=== PATIENT | female | born 1990 | race Caucasian/White ===

== ENCOUNTER 2020-02-12 05:22 | Inpatient (IN) | payer MEDICAID ==
[~2020-02-12] VITALS: Ht 167.6 cm; Wt 95.0 kg
[2020-02-12] MEDS ORDERED: IBUPROFEN 600 MG TABLET PO ONE (05:30)
--- NOTE | 2020-02-12 05:34 | NUR ---
Patient BIB fixed wing from [place] c/o left ankle pain and fevers. Patient is one month post reduction of the left ankle. Today there is pain at the surgical site along with drainage and patient is experiencing fevers and body aches. Patient appears anxious. Respirations even and unlabored.
[2020-02-12] MEDS ORDERED: IBUPROFEN 600 MG TABLET ONE (05:39)
[2020-02-12] MEDS ORDERED: NICOTINE 14MG/24 HR PATCH.TD24 ONE (05:39)
[2020-02-12] MEDS ORDERED: LORazepam 2 MG/ML, 1ML ONE (05:49)
[2020-02-12] MEDS ORDERED: SODIUM CHLORIDE FLUSH 10ML SYR IVF ONE (06:00)
[2020-02-12] MEDS ORDERED: NICOTINE 14MG/24 HR PATCH.TD24 TD ONE (06:00)
[2020-02-12] MEDS ORDERED: LORazepam 1MG TABLET PO ONE (06:00)
[2020-02-12] MEDS ORDERED: PLEASE ENTER ALLERGIES MC SCH (06:00)
[2020-02-12] MEDS ORDERED: SODIUM CHLORIDE 0.9% 1,000ML IVBOLUS ONE (06:00)
--- NOTE | 2020-02-12 06:13 | NUR ---
Task RN: pt stating she wants to leave AMA. pt medicated for anxiety per emar. I discussed with pt in depth the risks of leaving. pt provided food and a nictotine patch and now pt deciding to stay.
[2020-02-12] MEDS ORDERED: CEPH-368 PO (06:27)
[2020-02-12] MEDS ORDERED: FLUO20CA19 PO (06:27)
[2020-02-12] MEDS ORDERED: CLON0.1T22 PO (06:27)
[2020-02-12] MEDS ORDERED: BUPR150T73 PO (06:27)
--- NOTE | 2020-02-12 06:46 | NUR ---
Report given to KEYLA Salazar. Patient care transferred.
--- NOTE | 2020-02-12 06:58 | NUR ---
REPORT REC'VD FROM PRECIOUS RN
--- NOTE | 2020-02-12 07:16 | NUR ---
PT RESTING WITH EYES CLOSED IN BED. PT BRIEFLY AWAKENS TO RN ARRIVAL. PT TEMP RETAKEN. IV FLUIDS STILL INFUSING.
--- NOTE | 2020-02-12 07:25 | NUR ---
BLOOD DRAW IN PROGRESS. LAB CALLED AND INFORMED PT HAD REFUSED EARLY. NOW LAB ATTEMPTING AT RN REQUEST.
[2020-02-12 07:40] LABS: BASOPHILS % (AUTO) 1 % (0-1); EOSINOPHILS % (AUTO) 1 % (1-7); LYMPHOCYTES % (AUTO) 14 % (22-44); MEAN CORPUSCULAR HGB CONC 33.2 g/dL (32.4-35.8); MEAN PLATELET VOLUME 8.5 fL (7.4-10.4); MONOCYTES % (AUTO) 7 % (2-9); NEUTROPHILS % (AUTO) 77 % (42-75); PLATELET COUNT 198 x10^3/uL (130-400); RED BLOOD COUNT 3.82 x10^6/uL (3.82-5.3); RED CELL DISTRIBUTION WIDTH 12.5 % (9.6-15.2)
[2020-02-12 07:48] LABS: ALBUMIN 2.8 g/dL (3.4-5.0); ANION GAP 7 mmol/L (5-15); CALCIUM 8.1 mg/dL (8.5-10.1); CHLORIDE 108 mmol/L (98-107)
[2020-02-12 07:58] LABS: C-REACTIVE PROTEIN, QUANT 6.48 mg/dL (0.02-0.49); CREATININE 0.67 mg/dL (0.55-1.02)
[2020-02-12 08:14] LABS: MD SCAN
[2020-02-12 08:37] LABS: HCT (SEDRATE) 35.7 % (34.6-47.8)
--- NOTE | 2020-02-12 08:48 | NUR ---
PROVIDER AT BEDSIDE. PROVIDER OBTAINED CULTURE OF SURGICAL WOUND ON RIGHT ANKLE. SAMPLE WALKED TO LAB.
[2020-02-12] MEDS ORDERED: VANCOMYCIN PER PHARMACY MC PRN (09:00)
--- NOTE | 2020-02-12 09:03 | NUR ---
REPORT GIVEN TO ESTHER KUHN [id number]
[2020-02-12 09:13] VITALS: BP 121/80
[2020-02-12] MEDS ORDERED: LABETALOL 5MG/ML, 20ML IVPush PRN (09:30)
[2020-02-12] MEDS ORDERED: KETOROLAC 30 MG/1 ML IV PRN (09:30)
[2020-02-12] MEDS ORDERED: METOCLOPRAMIDE 5 MG/ML, 2ML IVPush PRN (09:30)
[2020-02-12] MEDS ORDERED: BUPROPION SR 150 MG TABLET PO SCH (09:30)
[2020-02-12] MEDS ORDERED: hydrOXyzine 50MG TABLET PO PRN (09:30)
[2020-02-12] MEDS ORDERED: IBUPROFEN 600 MG TABLET PO PRN (09:30)
[2020-02-12] MEDS ORDERED: FLUOXETINE HCL 20 MG CAPSULE PO SCH (09:30)
[2020-02-12] MEDS ORDERED: PHARMACOKINETIC CONSULTATION MC ONE (09:30)
[2020-02-12] MEDS ORDERED: ONDANSETRON ODT 4 MG PO PRN (09:30)
[2020-02-12] MEDS ORDERED: NICOTINE GUM 2 MG BC PRN (09:30)
[2020-02-12] MEDS ORDERED: PHARMACOKINETIC MONITORING MC PRN (09:30)
[2020-02-12] MEDS ORDERED: VANCOMYCIN 2,300 MG in SODIUM CHLORIDE 0.9% 500 ML IV ONE (10:00)
[2020-02-12] MEDS: CEFEPIME 2 GM in DEXTROSE 5% 100 ML IV SCH ×2 (10:08→19:14)
[2020-02-12] MEDS: POTASSIUM CHLORIDE 20 MEQ in LACTATED RINGERS 1,000 ML IV SCH ×2 (10:34→20:45)
[2020-02-12] MEDS: NICOTINE 21 MG/24 HR PATCH.TD24 TD SCH ×2 (10:34→10:36)
[2020-02-12] MEDS ORDERED: FENTANYL PF 100 MCG/2ML IV ONE (12:00)
[2020-02-12] MEDS: ACETAMINOPHEN 325 MG TABLET PO PRN ×3 (13:06→23:28)
[2020-02-12 13:12] VITALS: BP 134/85
[2020-02-12 17:00] VITALS: BP 136/66
[2020-02-12 19:34] VITALS: BP 139/80
[2020-02-12] MEDS ORDERED: VANCOMYCIN 1,900 MG in SODIUM CHLORIDE 0.9% 250 ML IV SCH (20:00)
[2020-02-12] MEDS ORDERED: MELATONIN 5 MG TABLET PO SCH (21:00)
[2020-02-12] MEDS ORDERED: TRAZODONE 50MG TABLET PO SCH (21:00)
[2020-02-12] MEDS ORDERED: VANCOMYCIN 1,800 MG in SODIUM CHLORIDE 0.9% 250 ML IV SCH (22:00)
[2020-02-12 23:57] LABS: MICROSCOPIC INDICATED
[2020-02-13] MEDS ORDERED: POLYETHYLENE GLYCOL 17 GM PACKET PO SCH (09:00)
[2020-02-13] MEDS ORDERED: SENNA/DOCUSATE TABLET PO SCH (09:00)
== END 2020-02-13 00:18 | disposition left against medical advice (07) | DRG 349 ==
LOC: ED 05:57 → EDIP 06:55 → 3WST 09:07
PROVIDERS: ADMIT Internal Medicine; ATTEND Internal Medicine
DX: T84.59XA Infection and inflammatory reaction due to other internal joint prosthesis, initial encounter (principal); A41.9 Sepsis, unspecified organism; F17.200 Nicotine dependence, unspecified, uncomplicated; M00.9 Pyogenic arthritis, unspecified; Y83.8 Other surgical procedures as the cause of abnormal reaction of the patient, or of later complication, without mention of misadventure at the time of the procedure; F41.9 Anxiety disorder, unspecified; F39 Unspecified mood [affective] disorder; I10 Essential (primary) hypertension; F32.9 Major depressive disorder, single episode, unspecified; D72.829 Elevated white blood cell count, unspecified; E87.2 Acidosis; Z91.19 Patient's noncompliance with other medical treatment and regimen; Y92.89 Other specified places as the place of occurrence of the external cause; Z88.0 Allergy status to penicillin; Z79.899 Other long term (current) drug therapy; Z79.891 Long term (current) use of opiate analgesic
CPT/HCPCS: 36415; 71045; 80048; 81001; 82040; 83036; 83605; 85025; 85651; 86140; 87040; 87070; 87077; 87147; 87186; 87205; 93005; 99285; G0378; J1885; J3370; J3480; J7030; J7040; J7050; J7120

== ENCOUNTER 2020-02-13 22:26 | Inpatient (IN) | payer MEDICAID ==
[~2020-02-13] VITALS: Ht 167.6 cm; Wt 95.5 kg
[~2020-02-13 22:26] MED LIST: BUPR150T73 PO; CEPH-368 PO; CLON0.1T22 PO; FLUO20CA19 PO
[2020-02-13] MEDS ORDERED: ONDANSETRON 2MG/ML, 2ML IVPush ONE (23:30)
[2020-02-13] MEDS ORDERED: VANCOMYCIN PER PHARMACY MC ONE (23:30)
[2020-02-13] MEDS ORDERED: VANCOMYCIN 2,000 MG in SODIUM CHLORIDE 0.9% 500 ML IV ONE (23:30)
[2020-02-13] MEDS ORDERED: SODIUM CHLORIDE 0.9% 1,000ML IVBOLUS ONE (23:30)
[2020-02-13] MEDS ORDERED: ACETAMINOPHEN 325 MG TABLET PO ONE (23:30)
[2020-02-13] MEDS ORDERED: SODIUM CHLORIDE FLUSH 10ML SYR IVF ONE (23:30)
[2020-02-13] MEDS ORDERED: CEFEPIME 1 GM in DEXTROSE 5% 50 ML IV ONE (23:30)
[2020-02-13] MEDS ORDERED: MORPHINE SULFATE 4 MG/ML, 1ML IVPush PRN (23:30)
--- NOTE | 2020-02-13 23:39 | NUR ---
PT AMBULATORY TO ROOM WITH STEADY GAIT. PT AMA FROM [facility] YESTERDAY BECAUSE PER PT, SHE GOT ANXIOUS. PT STATES SHE VISITS HOSPITAL TO HOSPITAL BECAUSE SHE "HAS A SHORT TEMPER". PT IN GOWN IN [facility] AND EDUCATED ON ER PROCESS AND POC. HISTORY AND ASSESSMENT PERFORMED BY DR NAYAK AT . ORDERS RECEIVED. CALL LIGHT IS WITHIN REACH. PIV ACCESS ATTEMPT X 2 UNSUCCESSFUL. SPINNER CONTINUOUS JAMES FOR PIV ACCESS VIA US AT THIS TIME.
[2020-02-13] MEDS ORDERED: MORPHINE SULFATE 4 MG/ML, 1ML ONE (23:42)
[2020-02-13] MEDS ORDERED: ONDANSETRON 2MG/ML, 2ML ONE (23:42)
[2020-02-13] MEDS ORDERED: ACETAMINOPHEN 325 MG TABLET ONE (23:42)
--- NOTE | 2020-02-13 23:53 | NUR ---
DR NAYAK AT . PT REFUSING IV ACCESS. PT REFUSING INTERVENTIONS. PT CRYING AND TOLD THIS NURSE "FUCK OFF DUDE". PT REFUSING TYLENOL AT THIS TIME AND STATES "I DON'T WANT IT, IT WON'T HELP"
[2020-02-14] MEDS ORDERED: ENALAPRILAT 1.25 MG/ML, 2ML IVPush PRN
[2020-02-14] MEDS ORDERED: ONDANSETRON 2MG/ML, 2ML IVPush PRN
[2020-02-14] MEDS ORDERED: METHOCARBAMOL 500 MG TABLET PO PRN
[2020-02-14] MEDS ORDERED: VANCOMYCIN PER PHARMACY MC PRN
[2020-02-14] MEDS ORDERED: ACETAMINOPHEN 325 MG TABLET PO PRN
[2020-02-14] MEDS ORDERED: GUAIFENESIN/DM 200-20MG, 10ML UDC PO PRN
[2020-02-14] MEDS ORDERED: DOCUSATE 100 MG CAPSULE PO PRN
--- NOTE | 2020-02-14 00:13 | NUR ---
Cornelius quiroz in ED - 02/14/20 at 0014 by [email or web address] REPORT OF PT TO KEYLA SUERO AT THIS TIME. ALL QUESTIONS ANSWERED.
--- NOTE | 2020-02-14 00:14 | NUR ---
REPORT OF PT TO KEYLA SUERO AT THIS TIME. ALL QUESTIONS ANSWERED.
--- NOTE | 2020-02-14 00:58 | NUR ---
0030 REPORT FROM KEYLA PLAZA. IV STARTED, BLOODS DRAWN FROM IV. PT HAD REFUSED UP UNTIL THIS POINT TO ALLOW FOR IV START. PT IS NOW AREEIN TO HAVE BC DRAWN BY LAB. IV ABX READY TO GO, NEED BC HOWEVER PT KEEPS REFUSING.
--- NOTE | 2020-02-14 01:11 | NUR ---
IVF INFUSING, REPORT TO TIFFANIE RAMIRES ON FLOOR. LAB HERE TO DRAW BC X2. THEN ABX AND UP TO FLOOR.
[2020-02-14] MEDS ORDERED: MORPHINE SULFATE 4 MG/ML, 1ML ONE (01:21)
--- NOTE | 2020-02-14 01:24 | NUR ---
LAB DRAWING BC, PT MEDICATED WITH MORPHINE FOR PAIN. VSS.
--- NOTE | 2020-02-14 01:35 | NUR ---
2ND SET BC DRAWN, 1ST ABX STARTED. VSS. WAITINGH FOR TXZ TO FLOOR.
[2020-02-14 01:52] LABS: HCT (SEDRATE) 36.9 % (34.6-47.8)
[2020-02-14 01:53] LABS: BASOPHILS % (AUTO) 1 % (0-1); EOSINOPHILS % (AUTO) 1 % (1-7); LYMPHOCYTES % (AUTO) 22 % (22-44); MEAN CORPUSCULAR HEMOGLOBIN 30.7 pg (27.0-34.8); MEAN CORPUSCULAR HGB CONC 32.8 g/dL (32.4-35.8); MEAN PLATELET VOLUME 8.7 fL (7.4-10.4); MONOCYTES % (AUTO) 8 % (2-9); NEUTROPHILS % (AUTO) 69 % (42-75); PLATELET COUNT 196 x10^3/uL (130-400); RED BLOOD COUNT 3.71 x10^6/uL (3.82-5.3); RED CELL DISTRIBUTION WIDTH 12.6 % (9.6-15.2)
[2020-02-14 01:55] LABS: MD NO
[2020-02-14 01:59] VITALS: BP 116/73
[2020-02-14 01:59] LABS: ALBUMIN 2.8 g/dL (3.4-5.0); ANION GAP 5 mmol/L (5-15); CALCIUM 8.5 mg/dL (8.5-10.1); CHLORIDE 104 mmol/L (98-107); CREATININE 0.64 mg/dL (0.55-1.02)
[2020-02-14] MEDS: morphine SULFATE 10 MG/ML, 1ML IVPush PRN ×4 (02:20→20:57)
[2020-02-14] MEDS: ZOLPIDEM 5MG TABLET PO PRN (02:20)
[2020-02-14] MEDS ORDERED: PHARMACOKINETIC CONSULTATION MC ONE (02:30)
[2020-02-14] MEDS ORDERED: PHARMACOKINETIC MONITORING MC PRN (02:30)
[2020-02-14] MEDS: LACTATED RINGERS 1,000 ML IV SCH ×2 (03:13→20:57)
[2020-02-14 07:03] VITALS: BP 98/66
[2020-02-14] MEDS: NICOTINE 14MG/24 HR PATCH.TD24 TD SCH (07:50)
[2020-02-14] MEDS: HYDROcodone/APAP 5/325 TABLET PO PRN ×3 (07:54→22:47)
[2020-02-14] MEDS: FAMOTIDINE 20 MG TABLET PO SCH ×2 (09:19→20:58)
[2020-02-14] MEDS: CEFEPIME 2 GM in DEXTROSE 5% 100 ML IV SCH ×2 (11:34→23:44)
[2020-02-14 13:02] VITALS: BP 103/68
[2020-02-14] MEDS: VANCOMYCIN 1,900 MG in SODIUM CHLORIDE 0.9% 250 ML IV SCH (13:32)
[2020-02-14 14:26] LABS: MICROSCOPIC AUTO
[2020-02-14 14:37] LABS: AMPHETAMINE SCREEN, URINE Negative (Negative); BARBITURATE SCREEN, URINE Negative (Negative); BENZODIAZEPINE SCREEN, URINE Negative (Negative); CANNABINOID SCREEN, URINE Negative (Negative); COCAINE SCREEN, URINE Negative (Negative); METHADONE SCREEN, URINE Negative (Negative); OPIATE SCREEN, URINE Positive (Negative)
[2020-02-14] MEDS ORDERED: LORazepam 2 MG/ML, 1ML IVPush STA (16:22)
[2020-02-14] MEDS ORDERED: LIDOCAINE-MPF 1%, 5ML ONE ×2 (16:22→17:02)
[2020-02-14 18:58] VITALS: BP 96/60
[2020-02-15 00:40] VITALS: BP 146/85
[2020-02-15] MEDS: VANCOMYCIN 1,900 MG in SODIUM CHLORIDE 0.9% 250 ML IV SCH ×3 (02:16→14:05)
[2020-02-15 06:03] VITALS: BP 96/59
[2020-02-15] MEDS: LACTATED RINGERS 1,000 ML IV SCH ×3 (06:03→23:00)
[2020-02-15] MEDS: NICOTINE 14MG/24 HR PATCH.TD24 TD SCH (08:22)
[2020-02-15] MEDS: FAMOTIDINE 20 MG TABLET PO SCH ×2 (08:22→20:59)
[2020-02-15] MEDS: HYDROcodone/APAP 5/325 TABLET PO PRN ×4 (08:22→21:01)
[2020-02-15] MEDS: morphine SULFATE 10 MG/ML, 1ML IVPush PRN (11:31)
[2020-02-15] MEDS: CEFEPIME 2 GM in DEXTROSE 5% 100 ML IV SCH ×2 (11:59→23:30)
[2020-02-15 13:19] VITALS: BP 105/64
[2020-02-15 19:12] VITALS: BP 119/78
[2020-02-15] MEDS: ZOLPIDEM 5MG TABLET PO PRN (21:57)
[2020-02-16] MEDS: VANCOMYCIN 1,900 MG in SODIUM CHLORIDE 0.9% 250 ML IV SCH ×2 (02:00→14:00)
[2020-02-16 03:06] VITALS: BP 116/77
[2020-02-16 07:36] VITALS: BP 115/73
[2020-02-16] MEDS: LACTATED RINGERS 1,000 ML IV SCH (08:06)
[2020-02-16] MEDS: NICOTINE 14MG/24 HR PATCH.TD24 TD SCH (08:29)
[2020-02-16] MEDS: FAMOTIDINE 20 MG TABLET PO SCH (08:29)
[2020-02-16] MEDS: HYDROcodone/APAP 5/325 TABLET PO PRN (08:31)
[2020-02-16] MEDS: CEFEPIME 2 GM in DEXTROSE 5% 100 ML IV SCH (11:30)
[2020-02-16 13:05] VITALS: BP 110/72
[2020-02-16] MEDS ORDERED: SULF1TAB24 PO (14:33)
[2020-02-16] MEDS ORDERED: CEFD300C37 PO (14:33)
== END 2020-02-16 16:33 | disposition home or self-care (01) | DRG 720 ==
LOC: ED 23:25 → EDIP 02-14 00:29 → 3N 02-14 01:57
PROVIDERS: ADMIT Internal Medicine; ATTEND Internal Medicine
PROC: 0S9 Lower Joints, Drainage (ICD-10-PCS; principal; 2020-02-14)
DX: A41.9 Sepsis, unspecified organism (principal); E66.9 Obesity, unspecified; E74.39 Other disorders of intestinal carbohydrate absorption; E87.6 Hypokalemia; E87.8 Other disorders of electrolyte and fluid balance, not elsewhere classified; E88.09 Other disorders of plasma-protein metabolism, not elsewhere classified; F17.210 Nicotine dependence, cigarettes, uncomplicated; L03.115 Cellulitis of right lower limb; M00.9 Pyogenic arthritis, unspecified; Z53.20 Procedure and treatment not carried out because of patient's decision for unspecified reasons; Z63.8 Other specified problems related to primary support group; Z68.35 Body mass index [BMI] 35.0-35.9, adult; Z91.19 Patient's noncompliance with other medical treatment and regimen; R73.9 Hyperglycemia, unspecified; Z88.0 Allergy status to penicillin
CPT/HCPCS: 20606; 36415; 80048; 80307; 81001; 82040; 83036; 83605; 84145; 84443; 85025; 85651; 86140; 87040; 87070; 87081; 87205; 87880; 96374; 99285; G0378; J0692; J3370; J2060; J2270; J7030; J7040; J7050; J7120